=== PATIENT | female | born 1945 | race Caucasian/White ===

== ENCOUNTER 2019-08-07 08:40 | Inpatient (IN) | payer MEDICAID ==
[~2019-08-07] VITALS: Ht 165.1 cm; Wt 84.1 kg
[2019-08-07] MEDS ORDERED: IV NORMAL SALINE 1000 ML BAG IV ONE (09:00)
[2019-08-07] MEDS ORDERED: PANTOPRAZOLE SODIUM 40 MG VIAL IV ONE (09:00)
[2019-08-07] MEDS ORDERED: METO50TA16 PO (09:11)
[2019-08-07] MEDS ORDERED: LEVEMIR (09:12)
[2019-08-07] MEDS ORDERED: CLON0.1T PO (09:12)
[2019-08-07] MEDS ORDERED: INSU100I4 SQ (09:12)
[2019-08-07] MEDS ORDERED: ACET-73 PO (09:12)
[2019-08-07] MEDS ORDERED: LISI10TA5 PO (09:12)
[2019-08-07] MEDS ORDERED: PANT40TA49 PO (09:12)
[2019-08-07] MEDS ORDERED: INSU100I19 SQ (09:14)
[2019-08-07] MEDS ORDERED: PANTOPRAZOLE SODIUM 40 MG VIAL ONE (09:20)
[2019-08-07 09:29] LABS: MONOCYTES # (AUTO) 1.1 K/uL (2.0-10.0)
[2019-08-07 09:31] LABS: BASOPHILS % (AUTO) 0.4 % (0.0-2.0); EOSINOPHILS % (AUTO) 0.2 % (0.0-7.0); HEMATOCRIT 21.4 % (31.2-41.9); LYMPHOCYTES % (AUTO) 73.9 % (20.5-51.5); MEAN CORPUSCULAR HEMOGLOBIN 29.5 uug (24.7-32.8); MEAN CORPUSCULAR HGB CONC 34 g/dL (32.3-35.6); MEAN CORPUSCULAR VOLUME 87.9 fL (75.5-95.3); MONOCYTES % (AUTO) 14.1 % (0.0-11.0); NEUTROPHILS # (AUTO) 0.9 K/uL (1.8-8.9); NEUTROPHILS % (AUTO) 11.4 % (38.5-71.5); WHITE BLOOD COUNT (AUTO) 8.1 K/uL (3.8-11.8)
--- NOTE | 2019-08-07 09:32 | NUR ---
Patient in [facility] alert to name, czech speaking, hypotensive upon arrival, iv fluids infused, labs sent, and patient currently being taken to ct scan.
[2019-08-07 09:37] LABS: HEMOGLOBIN 7.2 g/dL (10.9-14.3); PLATELET COUNT (AUTO) 33 K/uL (179-408); RED BLOOD CELL COUNT(AUTO) 2.43 MIL/uL (3.63-4.92)
[2019-08-07 09:43] LABS: *BILIRUBIN,URIN NEGATIVE (NEGATIVE); *CLARITY,URINE SLIGHTLY CLOUDY (CLEAR); *COLOR,URINE YELLOW (YELLOW); *KETONES,URINE NEGATIVE (NEGATIVE); *UROBILINOGEN,URINE 0.2 E.U./dl (NORMAL); LEUKOCYTE ESTERASE ,URINE NEGATIVE (NEGATIVE); NITRITE, URINE NEGATIVE (NEGATIVE); UGLUCOSE NEGATIVE (NEGATIVE)
[2019-08-07 09:44] LABS: CARBON DIOXIDE 21 mmol/L (21-32); CHLORIDE 106 mmol/L (98-107); CREATININE 1.4 mg/dL (0.6-1.3); GLUCOSE 198 mg/dL (74-106); POTASSIUM 4.1 mmol/L (3.5-5.1); UREA NITROGEN, BLOOD 14 mg/dL (7-18)
[2019-08-07 09:46] LABS: *BLOOD, URINE TRACE (NEGATIVE)
[2019-08-07 09:48] LABS: SQUAMOUS EPITHELIAL CELL,UR FEW /HPF (NONE SEEN)
[2019-08-07 09:48] LABS: ALANINE AMINOTRANSFERASE 11 U/L (14-59); ALKALINE PHOSPHATASE 58 U/L (50-136); ASPARTATE AMINOTRANSFERASE 20 U/L (15-37); BILIRUBIN,DIRECT 0.1 mg/dL (0.0-0.2); BILIRUBIN,TOTAL 0.4 mg/dL (0.2-1.0); TOTAL PROTEIN, SERUM 5.8 g/dL (6.4-8.2)
[2019-08-07 09:49] LABS: BACTERIA,URINE FEW /HPF (NONE SEEN); RBC,URINE 0-3 /HPF (0-3); WBC,URINE NONE SEEN /HPF (0-3)
[2019-08-07 10:10] LABS: LYMPHOCYTES % (MANUAL) 73 % (20-40); MONOCYTES % (MANUAL) 10 % (2-10); MYELOCYTES % 1 % (0-0); NEUTROPHILS % (MANUAL) 16 % (42-75)
[2019-08-07] MEDS ORDERED: levoFLOXacin 750 MG/D5W 150 ML PIGGYBACK IV ONE (10:15)
[2019-08-07] MEDS ORDERED: levoFLOXacin 750MG/D5W 150 ML IV ONE (10:20)
--- NOTE | 2019-08-07 11:56 | NUR ---
Patient was swabbed for MRSA, COVID19, Levaquin infused with 1L NS, patient tolerated well. Report given to Shahnaz. Patient awaiting transfer to room 220 as a Tele PUI.
[2019-08-07 12:30] VITALS: BP 149/49
[2019-08-07] MEDS ORDERED: IV NS 1000 ML 1,000 ML IV PRN (13:54)
[2019-08-07] MEDS ORDERED: ONDANSETRON 4 MG/2 ML VIAL IV PRN (14:00)
[2019-08-07] MEDS ORDERED: Z GUARD REMEDY PASTE 57 GM TUBE TOP PRN (14:00)
[2019-08-07] MEDS ORDERED: INSULIN REGULAR, HUMAN 300 UNITS/3 ML VIAL SQ PRN (14:15)
[2019-08-07] MEDS ORDERED: DEXTROSE 50% 50 ML DISP.SYRIN IV PRN (14:15)
[2019-08-07 15:30] VITALS: BP 128/36
[2019-08-07] MEDS ORDERED: INSULIN ASPART 300 UNIT/3 ML CARTRIDGE SQ SCH (16:30)
[2019-08-07] MEDS ORDERED: INSULIN DETEMIR 300 UNIT/3 ML CARTRIDGE SQ SCH (17:00)
[2019-08-07] MEDS: BLOOD SUGAR DIAGNOSTIC 1 EACH STRIP VI SCH ×2 (17:29→21:23)
[2019-08-07] MEDS: ACETAMINOPHEN 325 MG TABLET PO PRN (17:30)
--- NOTE | 2019-08-07 18:00 | NUR ---
Received patient from ER via joni, report received from Myranda ANTHONY. Patient is alert, oriented x 3, not in any form of distress on 2LPM via nasal cannula. With peripheral line on right AC with levaquin IV going on. Another peripheral line on the left wrist patent with no signs of infection. Oriented patient to staff, room and use of devices with verbalized understanding. Spoke to toro Gonzalez on the phone regarding history. Assisted patient with her needs promptly. Call light and frequently used items placed within patient's reach.
--- NOTE | 2019-08-07 19:30 | NUR ---
PATIENT ALERT ORIENTED SPEAK YEMENI, NO SOB NO CHEST PAIN NOTED, TELE MONITOR SINUS RHYTHM AT THIS TIME. PATIENT HAS RIGHT KUMAR ABRASION COMPLAIN OF SOME DISCOMFORT, PATIENT HAS NO S/S OF HYPO/HYPERGLYCEMIA NOTED AT THIS TIME, REMAINS ON DROPLET PRECAUTION AT THIS TIME, AFEBRILE CALL LIGHT WITHIN REACH, ASSIST WITH TOILETING, CONT TO MONITOR.
[2019-08-07 20:00] VITALS: BP 132/63
[2019-08-07] MEDS: METOPROLOL TARTRATE 50 MG TABLET PO SCH (21:24)
[2019-08-07] MEDS: INSULIN GLARGINE,HUM 300 UNITS/3 ML CARTRIDGE SQ SCH (21:30)
[2019-08-08] VITALS (16 sets, daily range): BP systolic 118–158; BP diastolic 35–78
[2019-08-08] MEDS: ACETAMINOPHEN 325 MG TABLET PO PRN ×2 (00:47→12:28)
[2019-08-08] MEDS: BLOOD SUGAR DIAGNOSTIC 1 EACH STRIP VI SCH ×4 (05:09→21:59)
--- NOTE | 2019-08-08 05:47 | NUR ---
PATIENT ALERT SPEAK TANZANIAN BUT UNDERSTAND SOME [place]OU[place]ORE[place], TELE MONITOR SINUS RYTHYM AT THIS TIME. PATIENT REMAINS ON DROPLET PRECAUTIONS, ASSIST WITH TOILETING, NO SYNCOPAL EPISODES AT THIS TIME.
--- NOTE | 2019-08-08 06:35 | NUR ---
PATIENT IV INFILTRATED, IV WAS REMOVED. PATIENT IS HARD STICK NOTIFY DR. CHILD TO OBTAIN MIDLINE ORDER. OKEYED THE ORDER.
[2019-08-08 06:52] LABS: THYROID STIMULATING HORMONE 2.674 mIU/mL (0.358-3.740)
[2019-08-08 06:54] LABS: BILIRUBIN,TOTAL 0.3 mg/dL (0.2-1.0); CREATININE 1.3 mg/dL (0.6-1.3); MAGNESIUM 1.3 mg/dL (1.8-2.4); POTASSIUM 3.7 mmol/L (3.5-5.1)
[2019-08-08 07:06] LABS: EOSINOPHILS % (AUTO) 0.1 % (0.0-7.0); MEAN CORPUSCULAR HGB CONC 33 g/dL (32.3-35.6)
[2019-08-08 07:27] LABS: BASOPHILS # (AUTO) 0.2 K/uL (0.0-8.0); BASOPHILS % (AUTO) 0.8 % (0.0-2.0); LYMPHOCYTES # (AUTO) 17.4 K/uL (20.0-40.0); LYMPHOCYTES % (AUTO) 92.3 % (20.5-51.5); MEAN CORPUSCULAR HEMOGLOBIN 29.1 uug (24.7-32.8); MEAN CORPUSCULAR VOLUME 89.3 fL (75.5-95.3); MONOCYTES # (AUTO) 0.1 K/uL (2.0-10.0); MONOCYTES % (AUTO) 0.7 % (0.0-11.0); NEUTROPHILS # (AUTO) 1.1 K/uL (1.8-8.9); NEUTROPHILS % (AUTO) 6.1 % (38.5-71.5); RED BLOOD CELL COUNT(AUTO) 2.19 MIL/uL (3.63-4.92)
[2019-08-08 07:30] LABS: WHITE BLOOD COUNT (AUTO) 18.8 K/uL (3.8-11.8)
--- NOTE | 2019-08-08 07:30 | NUR ---
received patient in bed. AOX4. denies SOB, Chest pain. no distress noted. safety and fall prevention in place. will continue to monitor.
[2019-08-08 07:31] LABS: HEMOGLOBIN 6.4 g/dL (10.9-14.3)
[2019-08-08 07:33] LABS: HEMATOCRIT 19.6 % (31.2-41.9); PLATELET COUNT (AUTO) 47 K/uL (179-408)
[2019-08-08 08:28] LABS: BAND % (MANUAL) 1 % (0-10); LYMPHOCYTES % (MANUAL) 78 % (20-40); NEUTROPHILS % (MANUAL) 5 % (42-75)
[2019-08-08 08:50] LABS: REACTIVE LYMPHOCYTES 16 % (0-0)
[2019-08-08] MEDS: LISINOPRIL 10 MG TABLET PO SCH (09:00)
[2019-08-08] MEDS: METOPROLOL TARTRATE 50 MG TABLET PO SCH ×2 (09:51→21:58)
[2019-08-08] MEDS: INSULIN GLARGINE,HUM 300 UNITS/3 ML CARTRIDGE SQ SCH ×2 (10:00→22:14)
[2019-08-08] MEDS ORDERED: FUROSEMIDE 40 MG/4 ML VIAL IV ONE (10:30)
[2019-08-08] MEDS: INSULIN REGULAR, HUMAN 300 UNIT/3 ML VIAL SQ PRN (13:14)
[2019-08-08] MEDS ORDERED: MAGNESIUM SULFATE/D5W 100 ML IV SCH (15:30)
[2019-08-08] MEDS ORDERED: FUROSEMIDE 40 MG/4 ML VIAL IVP ONE (15:45)
--- NOTE | 2019-08-08 18:30 | NUR ---
MRSA POSITIVE TO BILAT NOSE
--- NOTE | 2019-08-08 19:02 | NUR ---
PATIENT HAS LEFT UPPER ARM MIDLINE AND IS VERY HARD STICK. 2 UNITS OF PRBC INFUSED AND FINISHED NOW. MAG IV WAS ORDERED BUT UNABLE TO GIVE BECAUSE OF NO OTHER IV AVAILABLE. ILL REPORT TO SOUND ART INSTRUCTOR RN TO GIVE 4 GM OF MAG. ORDERED.
[2019-08-08] MEDS ORDERED: MAGNESIUM SULFATE/D5W 400 ML ONE (22:43)
[2019-08-08] MEDS: MAGNESIUM SULFATE/D5W 100 ML IV SCH (22:56)
--- NOTE | 2019-08-08 23:30 | NUR ---
Relayed to Kandi Arriola NP re: MRSA nares positive with new order for Bactroban x 5 days.
[2019-08-09] VITALS: BP 154/67
[2019-08-09] MEDS: MAGNESIUM SULFATE/D5W 100 ML IV SCH ×3 (00:21→02:43)
[2019-08-09 04:53] VITALS: BP 151/81
[2019-08-09] MEDS: ACETAMINOPHEN 325 MG TABLET PO PRN (05:21)
[2019-08-09 06:41] LABS: BASOPHILS # (AUTO) 0.1 K/uL (0.0-8.0); BASOPHILS % (AUTO) 1.1 % (0.0-2.0); EOSINOPHILS % (AUTO) 0.2 % (0.0-7.0); HEMATOCRIT 24.9 % (31.2-41.9); HEMOGLOBIN 8.6 g/dL (10.9-14.3); LYMPHOCYTES # (AUTO) 12.5 K/uL (20.0-40.0); LYMPHOCYTES % (AUTO) 90.2 % (20.5-51.5); MEAN CORPUSCULAR HEMOGLOBIN 29.6 uug (24.7-32.8); MEAN CORPUSCULAR HGB CONC 35 g/dL (32.3-35.6); MEAN CORPUSCULAR VOLUME 85.7 fL (75.5-95.3); MONOCYTES # (AUTO) 0.1 K/uL (2.0-10.0); NEUTROPHILS % (AUTO) 7.5 % (38.5-71.5); PLATELET COUNT (AUTO) 52 K/uL (179-408); RED BLOOD CELL COUNT(AUTO) 2.91 MIL/uL (3.63-4.92); WHITE BLOOD COUNT (AUTO) 13.9 K/uL (3.8-11.8)
[2019-08-09 06:56] LABS: CREATININE 1.1 mg/dL (0.6-1.3); MAGNESIUM 2.2 mg/dL (1.8-2.4); PHOSPHOROUS 3.5 mg/dL (2.5-4.9); POTASSIUM 3.4 mmol/L (3.5-5.1)
[2019-08-09 06:57] LABS: ALANINE AMINOTRANSFERASE < 6 U/L (14-59); ALKALINE PHOSPHATASE 71 U/L (50-136); ASPARTATE AMINOTRANSFERASE 17 U/L (15-37); BILIRUBIN,DIRECT 0.2 mg/dL (0.0-0.2); BILIRUBIN,TOTAL 0.6 mg/dL (0.2-1.0); TOTAL PROTEIN, SERUM 6.5 g/dL (6.4-8.2)
[2019-08-09] MEDS: BLOOD SUGAR DIAGNOSTIC 1 EACH STRIP VI SCH ×4 (06:59→21:42)
[2019-08-09 07:45] LABS: *RHEUMATOID FACTOR SCREEN NEGATIVE (NEGATIVE)
[2019-08-09 08:30] LABS: BAND % (MANUAL) 1 % (0-10); LYMPHOCYTES % (MANUAL) 89 % (20-40); NEUTROPHILS % (MANUAL) 10 % (42-75)
[2019-08-09] MEDS: INSULIN GLARGINE,HUM 300 UNITS/3 ML CARTRIDGE SQ SCH ×2 (08:49→21:44)
[2019-08-09] MEDS: INSULIN REGULAR, HUMAN 300 UNIT/3 ML VIAL SQ PRN ×2 (08:50→17:31)
[2019-08-09 09:00] VITALS: BP 147/70
[2019-08-09] MEDS: MUPIROCIN 2% OINT 22 GM TUBE NS SCH ×2 (09:03→21:25)
[2019-08-09] MEDS: METOPROLOL TARTRATE 50 MG TABLET PO SCH ×2 (09:03→21:25)
[2019-08-09] MEDS: LISINOPRIL 10 MG TABLET PO SCH (09:04)
--- NOTE | 2019-08-09 10:01 | NUR ---
patient noted sitting on the side of the bed, took all AM medications, no complaints of pain, no signs of distress noted, call lighting reach, bed locked and in lowest position, all needs met
[2019-08-09] MEDS ORDERED: POTASSIUM CHLORIDE 20 MEQ TAB.PRT.SR PO ONE (11:30)
--- NOTE | 2019-08-09 12:15 | NUR ---
Pt does not have enough ascites for paracentesis. Notified Rn
[2019-08-09 17:00] VITALS: BP 149/53
[2019-08-09 20:05] VITALS: BP 148/57
[2019-08-10 00:13] VITALS: BP 134/53
[2019-08-10 04:00] VITALS: BP 154/51
[2019-08-10] MEDS: BLOOD SUGAR DIAGNOSTIC 1 EACH STRIP VI SCH ×2 (07:00→12:01)
[2019-08-10 09:01] LABS: MAGNESIUM 1.7 mg/dL (1.8-2.4); PHOSPHOROUS 3.8 mg/dL (2.5-4.9); POTASSIUM 3.6 mmol/L (3.5-5.1)
[2019-08-10 09:08] LABS: BASOPHILS # (AUTO) 0.2 K/uL (0.0-8.0); EOSINOPHILS % (AUTO) 0.2 % (0.0-7.0); HEMATOCRIT 26.1 % (31.2-41.9); HEMOGLOBIN 8.9 g/dL (10.9-14.3); LYMPHOCYTES # (AUTO) 15.1 K/uL (20.0-40.0); LYMPHOCYTES % (AUTO) 91.7 % (20.5-51.5); MEAN CORPUSCULAR HEMOGLOBIN 29.5 uug (24.7-32.8); MEAN CORPUSCULAR HGB CONC 34 g/dL (32.3-35.6); MEAN CORPUSCULAR VOLUME 86.5 fL (75.5-95.3); MONOCYTES # (AUTO) 0.2 K/uL (2.0-10.0); MONOCYTES % (AUTO) 1.1 % (0.0-11.0); PLATELET COUNT (AUTO) 61 K/uL (179-408); RED BLOOD CELL COUNT(AUTO) 3.01 MIL/uL (3.63-4.92); WHITE BLOOD COUNT (AUTO) 16.5 K/uL (3.8-11.8)
[2019-08-10] MEDS: MUPIROCIN 2% OINT 22 GM TUBE NS SCH (09:11)
[2019-08-10] MEDS: LISINOPRIL 10 MG TABLET PO SCH (09:16)
[2019-08-10 09:17] VITALS: BP 125/66
[2019-08-10] MEDS: METOPROLOL TARTRATE 50 MG TABLET PO SCH (09:17)
[2019-08-10] MEDS: INSULIN GLARGINE,HUM 300 UNITS/3 ML CARTRIDGE SQ SCH (09:21)
[2019-08-10 10:13] LABS: BAND % (MANUAL) 2 % (0-10); EOSINOPHILS % (MANUAL) 1 % (0-8); LYMPHOCYTES % (MANUAL) 89 % (20-40); MONOCYTES % (MANUAL) 1 % (2-10); NEUTROPHILS % (MANUAL) 7 % (42-75)
--- NOTE | 2019-08-10 16:20 | NUR ---
PATIENT CALM AND COMFORTABLE WITH NO SIGNS OF DISTRESS; PATIENT DISCHARGE HOME WITH GRANDSON AND STABLE VITAL SIGNS. PATIENT SENT HOME WITH BELONGINGS AND VALUABLES.
[2019-08-11 08:06] LABS: *IMMUNOGLOBULIN G, SERUM 1254 mg/dL (586-1602); IMMUNOGLOBULIN A, SERUM 222 mg/dL (64-422); IMMUNOGLOBULIN M, SERUM 36 mg/dL (26-217)
[2019-08-11 14:06] LABS: HEPATITIS B SURFACE AB Non Reactive (.); HEPATITIS B SURFACE AG Negative (Negative)
[2019-08-12 08:06] LABS: *ANTI-SCLERODERMA-70 AB <0.2 AI (0.0-0.9); *SJOGREN'S ANTI-SS-A <0.2 AI (0.0-0.9); *SJOGREN'S ANTI-SS-B <0.2 AI (0.0-0.9); *SMITH ANTIBODIES <0.2 AI (0.0-0.9); ANTI-DNA(DS) AB, QN <1 IU/mL (0-9)
[2019-08-13 07:07] LABS: A/G RATIO 0.8 (0.7-1.7); ALBUMIN 2.6 g/dL (2.9-4.4); ALPHA-1-GLOBULIN 0.5 g/dL (0.0-0.4); ALPHA-2-GLOBULIN 0.7 g/dL (0.4-1.0); BETA GLOBULIN 0.9 g/dL (0.7-1.3); GAMMA GLOBULIN 1.2 g/dL (0.4-1.8); GLOBULIN, TOTAL 3.2 g/dL (2.2-3.9); M-SPIKE Not Observed g/dL (Not Observed)
== END 2019-08-10 16:20 | disposition home or self-care (01) | DRG 48 ==
LOC: ER 08:40 → TELE 12:05
PROVIDERS: ADMIT Nurse Practitioner Acute Care; ATTEND Nurse Practitioner Acute Care
PROC: B547ZZA Ultrasonography of Left Subclavian Vein, Guidance (ICD-10-PCS; principal; 2019-08-08)
PROC: 30233N1 Transfusion of Nonautologous Red Blood Cells into Peripheral Vein, Percutaneous Approach (ICD-10-PCS; principal; 2019-08-08)
PROC: 05H633Z Insertion of Infusion Device into Left Subclavian Vein, Percutaneous Approach (ICD-10-PCS; principal; 2019-08-08)
DX: G90.8 Other disorders of autonomic nervous system (principal); N17.0 Acute kidney failure with tubular necrosis; E87.2 Acidosis; C91.00 Acute lymphoblastic leukemia not having achieved remission; E83.42 Hypomagnesemia; D69.59 Other secondary thrombocytopenia; E87.1 Hypo-osmolality and hyponatremia; R16.1 Splenomegaly, not elsewhere classified; J98.11 Atelectasis; Z79.4 Long term (current) use of insulin; Z90.49 Acquired absence of other specified parts of digestive tract; Z90.710 Acquired absence of both cervix and uterus; I10 Essential (primary) hypertension; K21.9 Gastro-esophageal reflux disease without esophagitis; D64.9 Anemia, unspecified; E86.1 Hypovolemia; E11.9 Type 2 diabetes mellitus without complications; R18.8 Other ascites
CPT/HCPCS: 36415; 70030-TC; 71045; 82747; 82784; 83550; 83605; 83615; 83735; 84100; 84155; 84165; 84443; 85014; 85025; 85651; 85730; 86038; 86334; 86430; 86706; 86803; 86850; 86900; 86901; 86920; 87040; 87086; 87340; 93005; 93307; 93880; A4663; C9113; G0378; J1815; J1940; J1956; J2405; J3475; J7030; P9016-BL; P9021; U0003-CS